=== PATIENT | female | born 1940 | race Caucasian/White ===

== ENCOUNTER 2017-05-12 07:39 | Outpatient (CLI) | payer OTHER | END 2017-05-12 07:43 | disposition home or self-care (01) | LOC: SONOGRAMA 07:39 | DX: E04.2 Nontoxic multinodular goiter (principal) ==

== ENCOUNTER 2017-10-30 08:14 | Outpatient (CLI) | payer OTHER | END 2017-10-30 08:23 | disposition home or self-care (01) | LOC: SONOGRAMA 08:14 | DX: E04.8 Other specified nontoxic goiter (principal) ==